=== PATIENT | male | born 1965 | race Caucasian/White ===

== ENCOUNTER 2017-03-21 14:23 | Emergency (ER) | payer SELFPAY ==
[~2017-03-21] VITALS: Ht 162.6 cm; Wt 68.5 kg
[2017-03-21 14:29] VITALS: BP_SYST 142
[2017-03-21 15:42] VITALS: BP_SYST 120
== END 2017-03-21 15:42 | disposition home or self-care (01) ==
LOC: SED 14:23
DX: A46 Erysipelas (principal)
CPT/HCPCS: 99283